=== PATIENT | female | born 2000 | race American Indian/Alaskan Native ===

== ENCOUNTER 2021-02-13 12:27 | Inpatient (IN) | payer MEDICAID ==
[2021-02-13] MEDS ORDERED: LIDOCAINE (2%) 20 MG/1 ML VIAL 20 ML MDV INFILTRATI ONE (12:40)
[2021-02-13] MEDS ORDERED: ONDANSETRON 4 MG/2 ML INJ IV PRN (12:40)
[2021-02-13] MEDS ORDERED: PROMETHAZINE 25 MG TAB PO PRN (12:40)
[2021-02-13] MEDS ORDERED: ePHEDrine SULFATE 50 MG/1 ML INJ IV PRN (12:40)
[2021-02-13] MEDS ORDERED: MINERAL OIL 30 ML ORAL LIQD PO PRN (12:40)
[2021-02-13] MEDS ORDERED: TERBUTALINE 1 MG/1 ML INJ SUB-Q PRN (12:40)
[2021-02-13] MEDS ORDERED: AMPICILLIN/NS 2 GM/100 ML 2 GM/100 ML BAG IV ONE ×2 (12:40→15:00)
[2021-02-13] MEDS ORDERED: NALOXONE 0.4 MG/1 ML INJ IV PRN (12:40)
[2021-02-13] MEDS ORDERED: ACETAMINOPHEN 325 MG TAB PO PRN (12:40)
--- NOTE | 2021-02-13 12:40 | History and Physical Report ---
History of Present Illness Date of examination: 02/13/21 (IOL @ 40.6 wks, Non reactive NST in office) Date of admission: 02/13/21 Chief complaint: NR NST in the office. History of present illness: Pt has non reactive NST in office @ 40.6 wks. Had postdates ultrasound: SABINO WNL, EFW 7-5, vertex. EDC Confirmation: 02/07/2021 Gestational Age: 40.6 wks on admission Past History : 1 Para: 0 Risk Factors: Smoked Tobacco Use: Never smoker Smokeless Tobacco Use: Never Tobacco Use Comments: srinivasa+ use - last use 1 month Passive smoke exposure: no Drug use: no HIV high-risk behavior: no Caffeine use: 0 drinks per day Alcohol use: yes Comments: occ Exercise: no Seatbelt use: preg-correctional counselor % Dietary Counseling: pn yes Past Medical History: Negative Past Medical History Past Surgical History: Broken R ankle - 01/2019 Family History Summary: Other Family Member - Has Family History of Hypertension - Entered On: 08/06/2020 Other Family Member - Has Family History of Diabetes - Entered On: 08/06/2020 Social History: Patient is single Smoking History: Patient has never smoked. Past Medical History Surgery (Non-obstetrics gynecology md): Broken R ankle - 01/2019 Abnormal PAP: negative PREETHI Exposure: negative Infertility: negative Uterine Anomaly: negative Uterine Surgery (not C/S): negative Other Gynecologic Problems: negative Social Hx: Patient is single Smoking History: Patient has never smoked. Infection History Hx of STD: none HIV Risk Eval: no Hepatitis B Risk Eval: low risk Personal hx. of genital herpes: no Rash, Viral, or Febrile illness since last LMP? no Varicella/Chicken Pox Status: Unknown TB Risk: no Genetic History Congenital Heart Defect: Mom: no Dad: no Hyacinth Disease: Mom: no Dad: no Thalassemia Mom: no Dad: no Neural Tube Defect Mom: no Dad: no Down's Syndrome Mom: no Dad: no All-Sachs Mom: no Dad: no Sickle Cell Disease/Trait Mom: no Dad: no Hemophilia Mom: no Dad: no Muscular Dystrophy Mom: no Dad: no Cystic Fibrosis Mom: no Dad: no Marion Chorea Mom: no Dad: no Mental Retardation Mom: no Dad: no Fragile X Mom: no Dad: no Other Genetic/Chromosomal Disorder Mom: no Dad: no Child w/other defect Mom: no Dad: no Enviromental Exposures Enviromental Exposures Reviewed Xray Exposure: no Medication, drug, or alcohol use since LMP: no Chemical/Other Exposure: no Exposure to Cat Liter: no Hx of Parvovirus (Fifth Disease): no Occupational Exposure to Children: none Comments: [employer] Active Medications (reviewed today): None Current Allergies (reviewed today): No known allergies Past History Past Medical History: no pertinent history Past Surgical History: other (Broken ankle that was repaired. ) Family/Genetic History: diabetes, hypertension Social history: no significant social history - Obstetrical History Expected Date of Delivery: 02/07/21 Actual Gestation: 41 Week(s) 0 Day(s) : 1 Para: 0 Hx # Term Pregnancies: 0 Number of Pregnancies: 0 Spontaneous Abortions: 0 Induced : 0 Number of Living Children: 0 Medications and Allergies Allergies Allergy/AdvReac Type Severity Reaction Status Date / Time No Known Allergies Allergy Verified 02/13/21 13:59 Review of Systems All systems: negative - Physical Exam Breasts: Positive: deferred Cardiovascular: Regular rate Lungs: Positive: Normal air movement Abdomen: Positive: normal appearance, soft Genitourinary (Female): Positive: normal external genitalia, normal perenium Vulva: both: normal Vagina: Positive: normal moisture Extremities: Positive: normal Deep Tendon Reflex Grade: Normal +2 - Obstetrical FHR: category 1 Uterine Contraction Monitor Mode: External Cervical Dilatation: 0.5 Cervical Effacement Percentage: 50 station: -3 Uterine Contraction Pattern: Irregular Uterine Tone Measurement Phase: Resting Uterine Contraction Intensity: Mild Results Result Diagrams: 02/13/21 14:45 All other labs normal. GBS POSITIVE HBsAg Screen Negative Negative *1 RPR Non Reactive Non Reactive *2 Rubella Antibodies, IgG 1.44 index Immune >0.99 *3 Non-immune <0.90 Equivocal 0.90 - 0.99 Immune >0.99 ABO Grouping O *4 Rh Factor Positive *5 Antibody Screen Negative Negative *6 Tests: (3) HIV Ag/Ab with Reflex (341350) HIV Screen 4th Generation wRfx Non Reactive Non Reactive *55 Tests: (4) HCV Ab w/Rflx to Verification ([id number]) ! HCV Ab <0.1 s/co ratio 0.0-0.9 *56 Tests: (5) Comment: ([id number]) ! Comment: [facility] *57 Non reactive HCV antibody screen is consistent with no HCV infection, unless recent infection is suspected or other evidence exists to indicate HCV infection. Assessment and Plan A: 20 y.o. @ 40.6 wks for IOL d/t non reactive NST in office. Cervical exam: Ft/50/-3. - Patient Problems (1) Non-reassuring heart rate or rhythm affecting management of fetus Onset Date: ~02/13/21 Current Visit: Yes Status: Acute Plan to address problem: Continuous EFM. (2) GBS (group B streptococcus) infection Current Visit: Yes Status: Acute Plan to address problem: Antibiotics ordered. (3) Postmaturity , 40-42 weeks gestation Onset Date: ~02/13/21 Current Visit: Yes Status: Acute Plan to address problem: Admit to labor and delivery for IOL. Initiate IV. Start IOL with low dose Pitocin per protocol. In evening if unchanged cervix wi ll insert Cervidil. Anticipate .
[2021-02-13] MEDS ORDERED: OXYTOCIN DRIP 30 UNITS/500 ML BAG IV SCH (13:00)
[2021-02-13] MEDS ORDERED: AMPICILLIN/NS 1 GM/50 ML 1 GM/50 ML BAG IV SCH (13:00)
[2021-02-13 14:56] LABS: Hematocrit 32.3 % (30.3-42.9); Hemoglobin 10.9 gm/dl (10.1-14.3); Mean Corpuscular HGB Conc 34 % (30-34); Mean Corpuscular Volume 91 fl (79-97); Platelet Count 303 K/mm3 (140-440); Red Blood Count 3.55 M/mm3 (3.65-5.03); Red Cell Distribution Width 14.7 % (13.2-15.2)
[2021-02-13] MEDS: LACTATED RINGERS 1,000 ML IV SCH (15:04)
[2021-02-13] MEDS ORDERED: DINOPROSTONE 10 MG VAG SUPP VG ONE (18:00)
--- NOTE | 2021-02-13 18:33 | Event Note ---
Date: 02/13/21 (Cervidil) Cervidil placed at 1820. Cervical exam FT/50/-3, unchanged from office exam today.
[2021-02-14] MEDS: LACTATED RINGERS 1,000 ML IV SCH (00:48)
[2021-02-14] MEDS: AMPICILLIN/NS 1 GM/50 ML 1 GM/50 ML BAG IV SCH ×5 (00:49→15:40)
[2021-02-14] MEDS: OXYTOCIN DRIP 30 UNITS/500 ML BAG IV SCH (10:02)
--- NOTE | 2021-02-14 11:32 | Progress Note ---
Assessment and Plan 20y/o @ 41+0 weeks, IOL for non-reassuring FHT. pt sleeping, denies feeling ctx, cramping, leaking or bleeding. will continue pitocin today and reevaluate this evening. Discussed serial IOL and probability that IOL could go several days. all questions addressed. - Patient Problems (1) GBS (group B streptococcus) infection Current Visit: Yes Status: Acute Plan to address problem: ampicillin q4hr when in labor (2) Non-reassuring heart rate or rhythm affecting management of fetus Onset Date: ~02/13/21 Current Visit: Yes Status: Acute Plan to address problem: IOL in progress fht currently cat 1 (3) 41 weeks gestation of Current Visit: Yes Status: Acute Subjective - Subjective Date of service: 02/14/21 Principal diagnosis: IUP @ 41+0; IOL for nonreassuring FHT Patient reports: movement normal, no new complaints, no loss of fluid, no vaginal bleeding, no contractions Objective - Vital Signs Vital Signs: Vital Signs - 12hr 02/13/21 02/13/21 02/13/21 23:31 23:36 23:41 Temperature Pulse Rate 79 86 85 Respiratory Rate Blood Pressure O2 Sat by Pulse 97 96 96 Oximetry 02/13/21 02/13/21 02/13/21 23:46 23:51 23:56 Temperature Pulse Rate 89 89 87 Respiratory Rate Blood Pressure O2 Sat by Pulse 96 96 97 Oximetry 02/13/21 02/14/21 02/14/21 23:58 00:01 00:02 Temperature 98.9 F Pulse Rate 97 H 85 90 Respiratory 18 Rate Blood Pressure 99/55 O2 Sat by Pulse 94 96 Oximetry 02/14/21 02/14/21 02/14/21 00:06 00:11 00:16 Temperature Pulse Rate 86 86 84 Respiratory Rate Blood Pressure O2 Sat by Pulse 98 97 96 Oximetry 02/14/21 02/14/21 02/14/21 00:21 00:26 00:31 Temperature Pulse Rate 82 84 90 Respiratory Rate Blood Pressure O2 Sat by Pulse 98 97 98 Oximetry 02/14/21 02/14/21 02/14/21 00:36 00:41 00:42 Temperature Pulse Rate 89 94 H 92 H Respiratory Rate Blood Pressure O2 Sat by Pulse 99 94 94 Oximetry 02/14/21 02/14/21 02/14/21 00:46 00:51 00:56 Temperature Pulse Rate 93 H 94 H 94 H Respiratory Rate Blood Pressure O2 Sat by Pulse 93 98 98 Oximetry 02/14/21 02/14/21 02/14/21 01:01 01:06 01:11 Temperature Pulse Rate 88 86 89 Respiratory Rate Blood Pressure O2 Sat by Pulse 98 97 98 Oximetry 02/14/21 02/14/21 02/14/21 01:16 01:21 01:26 Temperature Pulse Rate 93 H 95 H 80 Respiratory Rate Blood Pressure O2 Sat by Pulse 97 98 98 Oximetry 02/14/21 02/14/21 02/14/21 01:31 01:36 01:41 Temperature Pulse Rate 82 83 81 Respiratory Rate Blood Pressure O2 Sat by Pulse 98 98 98 Oximetry 02/14/21 02/14/21 02/14/21 01:51 01:56 02:01 Temperature Pulse Rate 86 83 89 Respiratory Rate Blood Pressure O2 Sat by Pulse 97 97 96 Oximetry 02/14/21 02/14/21 02/14/21 02:06 02:11 02:16 Temperature Pulse Rate 85 84 97 H Respiratory Rate Blood Pressure O2 Sat by Pulse 98 97 97 Oximetry 02/14/21 02/14/21 02/14/21 02:21 02:26 02:31 Temperature Pulse Rate 93 H 86 85 Respiratory Rate Blood Pressure O2 Sat by Pulse 99 97 98 Oximetry 02/14/21 02/14/21 02/14/21 02:34 02:36 02:41 Temperature Pulse Rate 101 H 101 H 91 H Respiratory Rate Blood Pressure O2 Sat by Pulse 94 99 99 Oximetry 02/14/21 02/14/21 02/14/21 02:45 02:46 02:51 Temperature Pulse Rate 100 H 89 95 H Respiratory Rate Blood Pressure O2 Sat by Pulse 94 98 100 Oximetry 02/14/21 02/14/21 02/14/21 02:56 03:01 03:06 Temperature Pulse Rate 87 93 H 98 H Respiratory Rate Blood Pressure O2 Sat by Pulse 99 98 98 Oximetry 02/14/21 02/14/21 02/14/21 03:11 03:16 03:21 Temperature Pulse Rate 87 87 92 H Respiratory Rate Blood Pressure O2 Sat by Pulse 97 99 98 Oximetry 02/14/21 02/14/21 02/14/21 03:26 03:31 03:35 Temperature Pulse Rate 85 85 82 Respiratory Rate Blood Pressure O2 Sat by Pulse 97 97 94 Oximetry 02/14/21 02/14/21 02/14/21 03:36 03:41 03:46 Temperature Pulse Rate 87 105 H 80 Respiratory Rate Blood Pressure O2 Sat by Pulse 98 98 97 Oximetry 02/14/21 02/14/21 02/14/21 03:51 03:56 04:01 Temperature Pulse Rate 86 82 78 Respiratory Rate Blood Pressure O2 Sat by Pulse 98 97 97 Oximetry 02/14/21 02/14/21 02/14/21 04:02 04:06 04:11 Temperature 97.9 F Pulse Rate 77 79 77 Respiratory 16 Rate Blood Pressure 109/64 O2 Sat by Pulse 97 97 Oximetry 02/14/21 02/14/21 02/14/21 04:16 04:21 04:26 Temperature Pulse Rate 85 79 75 Respiratory Rate Blood Pressure O2 Sat by Pulse 97 97 97 Oximetry 02/14/21 02/14/21 02/14/21 04:31 04:36 04:41 Temperature Pulse Rate 72 77 79 Respiratory Rate Blood Pressure O2 Sat by Pulse 98 98 98 Oximetry 02/14/21 02/14/21 02/14/21 04:43 04:46 04:48 Temperature Pulse Rate 76 86 83 Respiratory Rate Blood Pressure O2 Sat by Pulse 92 93 92 Oximetry 02/14/21 02/14/21 02/14/21 04:51 04:54 04:56 Temperature Pulse Rate 81 80 95 H Respiratory Rate Blood Pressure O2 Sat by Pulse 97 93 95 Oximetry 02/14/21 02/14/21 02/14/21 05:01 05:06 05:11 Temperature Pulse Rate 82 92 H 84 Respiratory Rate Blood Pressure O2 Sat by Pulse 99 96 97 Oximetry 02/14/21 02/14/21 02/14/21 05:16 05:21 05:26 Temperature Pulse Rate 88 85 87 Respiratory Rate Blood Pressure O2 Sat by Pulse 98 99 98 Oximetry 02/14/21 02/14/21 02/14/21 05:31 05:36 05:41 Temperature Pulse Rate 81 85 84 Respiratory Rate Blood Pressure O2 Sat by Pulse 98 99 99 Oximetry 02/14/21 02/14/21 02/14/21 05:46 05:51 05:56 Temperature Pulse Rate 87 82 88 Respiratory Rate Blood Pressure O2 Sat by Pulse 99 98 98 Oximetry 02/14/21 02/14/21 02/14/21 06:01 06:06 06:11 Temperature Pulse Rate 86 89 86 Respiratory Rate Blood Pressure O2 Sat by Pulse 98 96 96 Oximetry 02/14/21 02/14/21 02/14/21 06:13 06:16 07:33 Temperature Pulse Rate 91 H 79 97 H Respiratory Rate Blood Pressure 114/70 O2 Sat by Pulse 94 94 Oximetry 02/14/21 02/14/21 02/14/21 07:35 09:02 09:07 Temperature 98.9 F Pulse Rate 96 H 71 Respiratory 19 Rate Blood Pressure 128/78 O2 Sat by Pulse 93 Oximetry 02/14/21 02/14/21 02/14/21 09:08 09:09 09:12 Temperature Pulse Rate 64 107 H 109 H Respiratory Rate Blood Pressure 108/58 O2 Sat by Pulse 92 98 Oximetry 02/14/21 02/14/21 02/14/21 09:17 09:22 09:27 Temperature Pulse Rate 110 H 109 H 111 H Respiratory Rate Blood Pressure O2 Sat by Pulse 99 99 99 Oximetry 02/14/21 02/14/21 02/14/21 09:32 09:37 09:40 Temperature Pulse Rate 117 H 97 H 104 H Respiratory Rate Blood Pressure 130/79 O2 Sat by Pulse 99 100 Oximetry 02/14/21 02/14/21 02/14/21 09:42 09:47 09:52 Temperature Pulse Rate 99 H 107 H 109 H Respiratory Rate Blood Pressure O2 Sat by Pulse 97 100 99 Oximetry 02/14/21 02/14/21 02/14/21 09:57 10:02 10:10 Temperature Pulse Rate 108 H 110 H 113 H Respiratory Rate Blood Pressure O2 Sat by Pulse 99 99 98 Oximetry 02/14/21 02/14/21 02/14/21 10:15 10:20 10:25 Temperature Pulse Rate 103 H 102 H 101 H Respiratory Rate Blood Pressure O2 Sat by Pulse 97 98 97 Oximetry 02/14/21 02/14/21 02/14/21 10:30 10:35 10:39 Temperature Pulse Rate 98 H 100 H 94 H Respiratory Rate Blood Pressure 108/63 O2 Sat by Pulse 98 97 94 Oximetry 02/14/21 02/14/21 02/14/21 10:40 10:45 10:50 Temperature Pulse Rate 93 H 101 H 95 H Respiratory Rate Blood Pressure O2 Sat by Pulse 98 96 97 Oximetry 02/14/21 02/14/21 02/14/21 10:55 11:00 11:05 Temperature Pulse Rate 94 H 94 H 94 H Respiratory Rate Blood Pressure O2 Sat by Pulse 97 98 97 Oximetry 02/14/21 02/14/21 02/14/21 11:09 11:10 11:14 Temperature Pulse Rate 96 H 95 H 113 H Respiratory Rate Blood Pressure 104/62 O2 Sat by Pulse 97 87 Oximetry 02/14/21 02/14/21 02/14/21 11:15 11:20 11:25 Temperature Pulse Rate 110 H 103 H 95 H Respiratory Rate Blood Pressure O2 Sat by Pulse 96 98 100 Oximetry - Exam Cardiovascular: Regular rate Lungs: Normal air movement Abdomen: Present: normal appearance, soft Vulva: both: normal Uterus: Present: normal, fundal height above umbilicus FHR: auscultation normal Uterine Contraction Monitor Mode: External Uterine Contraction Frequency (min): 3-4 Uterine Contraction Duration: 60 Uterine Contraction Pattern: Regular Uterine Tone Measurement Phase: Contraction Uterine Contraction Intensity: Mild Extremities: normal Deep Tendon Reflex Grade: Normal +2 - Labs Labs: Abnormal Labs 02/13/21 14:45 RBC 3.55 L Laboratory Results - last 24 hr 02/13/21 02/13/21 02/13/21 14:45 14:45 14:45 WBC 6.4 RBC 3.55 L Hgb 10.9 Hct 32.3 MCV 91 MCH 31 MCHC 34 RDW 14.7 Plt Count 303 Syphilis IgG Antibody Nonreactive Blood Type O POSITIVE Antibody Screen Negative
[2021-02-14] MEDS ORDERED: DINOPROSTONE 10 MG VAG SUPP VG ONE (19:06)
[2021-02-15] MEDS: AMPICILLIN/NS 1 GM/50 ML 1 GM/50 ML BAG IV SCH ×2 (05:19→12:40)
[2021-02-15] MEDS: fentaNYL 100 MCG/2 ML INJ IV PRN ×2 (05:52→08:49)
--- NOTE | 2021-02-15 09:11 | Progress Note ---
Assessment and Plan 20y/o @ 41+0 weeks, IOL for non-reassuring FHT. pt sleeping, denies feeling ctx, cramping, leaking or bleeding. Cervidil to be removed @ 0917 and allow AM care and breakfast. Plan for cytotec today and then reevaluate this evening. Discussed serial IOL and probability that IOL could go several days. all questions addressed. - Patient Problems (1) GBS (group B streptococcus) infection Current Visit: Yes Status: Acute Plan to address problem: ampicillin q4hr when in labor (2) Non-reassuring heart rate or rhythm affecting management of fetus Onset Date: ~02/13/21 Current Visit: Yes Status: Acute Plan to address problem: IOL in progress fht currently cat 1 (3) 41 weeks gestation of Current Visit: Yes Status: Acute Subjective - Subjective Date of service: 02/15/21 Principal diagnosis: IUP @ 41+1; IOL for nonreassuring FHT Patient reports: movement normal, no new complaints, no loss of fluid, no vaginal bleeding, no contractions Objective - Vital Signs Vital Signs: Vital Signs - 12hr 02/14/21 02/14/21 02/14/21 21:07 21:12 21:14 Pulse Rate 92 H 84 Respiratory Rate Blood Pressure O2 Sat by Pulse 97 98 93 Oximetry 02/14/21 02/14/21 02/14/21 21:17 21:22 21:25 Pulse Rate 89 90 88 Respiratory Rate Blood Pressure 116/66 O2 Sat by Pulse 98 97 Oximetry 02/14/21 02/14/21 02/14/21 21:27 21:32 21:37 Pulse Rate 95 H 89 85 Respiratory Rate Blood Pressure O2 Sat by Pulse 99 96 98 Oximetry 02/14/21 02/14/21 02/14/21 21:42 21:47 21:52 Pulse Rate 88 89 85 Respiratory Rate Blood Pressure O2 Sat by Pulse 97 97 97 Oximetry 02/14/21 02/14/21 02/14/21 21:57 22:02 22:07 Pulse Rate 87 100 H 90 Respiratory Rate Blood Pressure O2 Sat by Pulse 99 97 98 Oximetry 02/14/21 02/14/21 02/14/21 22:12 22:17 22:22 Pulse Rate 80 81 85 Respiratory Rate Blood Pressure O2 Sat by Pulse 97 98 97 Oximetry 0502/14/21 02/14/21 22:25 22:27 22:32 Pulse Rate 82 87 92 H Respiratory Rate Blood Pressure 109/72 O2 Sat by Pulse 97 97 Oximetry 02/14/21 02/14/21 02/14/21 22:37 22:42 22:47 Pulse Rate 88 91 H 86 Respiratory Rate Blood Pressure O2 Sat by Pulse 97 97 97 Oximetry 02/14/21 02/14/21 02/14/21 22:49 22:58 23:03 Pulse Rate 85 96 H 77 Respiratory Rate Blood Pressure O2 Sat by Pulse 94 97 98 Oximetry 02/14/21 02/14/21 02/14/21 23:08 23:13 23:18 Pulse Rate 85 82 86 Respiratory Rate Blood Pressure O2 Sat by Pulse 98 98 99 Oximetry 02/14/21 02/14/21 02/14/21 23:23 23:28 23:33 Pulse Rate 86 83 98 H Respiratory Rate Blood Pressure O2 Sat by Pulse 98 98 98 Oximetry 02/14/21 02/14/21 02/14/21 23:38 23:43 23:48 Pulse Rate 82 86 82 Respiratory Rate Blood Pressure O2 Sat by Pulse 97 97 97 Oximetry 02/14/21 02/14/21 02/15/21 23:53 23:58 00:03 Pulse Rate 83 85 84 Respiratory Rate Blood Pressure O2 Sat by Pulse 97 96 96 Oximetry 02/15/21 02/15/21 02/15/21 00:08 00:13 00:18 Pulse Rate 87 93 H 77 Respiratory Rate Blood Pressure O2 Sat by Pulse 96 96 96 Oximetry 02/15/21 02/15/21 02/15/21 00:23 00:27 00:28 Pulse Rate 80 86 82 Respiratory Rate Blood Pressure O2 Sat by Pulse 96 94 92 Oximetry 02/15/21 02/15/21 02/15/21 00:33 00:34 00:38 Pulse Rate 84 86 89 Respiratory Rate Blood Pressure O2 Sat by Pulse 95 94 95 Oximetry 02/15/21 02/15/21 02/15/21 00:43 00:45 00:48 Pulse Rate 98 H 87 90 Respiratory Rate Blood Pressure O2 Sat by Pulse 98 94 96 Oximetry 02/15/21 02/15/21 02/15/21 00:53 00:58 01:03 Pulse Rate 88 90 95 H Respiratory Rate Blood Pressure O2 Sat by Pulse 97 97 96 Oximetry 02/15/21 02/15/21 02/15/21 01:08 01:13 01:18 Pulse Rate 87 88 90 Respiratory Rate Blood Pressure O2 Sat by Pulse 97 97 97 Oximetry 02/15/21 02/15/21 02/15/21 01:23 01:28 01:33 Pulse Rate 92 H 93 H 90 Respiratory Rate Blood Pressure O2 Sat by Pulse 96 96 96 Oximetry 02/15/21 02/15/21 02/15/21 01:38 01:44 01:49 Pulse Rate 95 H 108 H 92 H Respiratory Rate Blood Pressure O2 Sat by Pulse 96 97 97 Oximetry 02/15/21 02/15/21 02/15/21 01:54 01:59 02:04 Pulse Rate 87 96 H 90 Respiratory Rate Blood Pressure O2 Sat by Pulse 97 98 96 Oximetry 02/15/21 02/15/21 02/15/21 02:09 02:14 02:19 Pulse Rate 89 86 82 Respiratory Rate Blood Pressure O2 Sat by Pulse 96 96 94 Oximetry 02/15/21 02/15/21 02/15/21 02:24 02:25 02:29 Pulse Rate 91 H 89 88 Respiratory Rate Blood Pressure O2 Sat by Pulse 94 94 97 Oximetry 02/15/21 02/15/21 02/15/21 02:32 02:34 02:39 Pulse Rate 92 H 81 80 Respiratory Rate Blood Pressure O2 Sat by Pulse 94 97 98 Oximetry 02/15/21 02/15/21 02/15/21 02:44 02:49 02:54 Pulse Rate 78 83 83 Respiratory Rate Blood Pressure O2 Sat by Pulse 98 96 97 Oximetry 02/15/21 02/15/21 02/15/21 02:59 03:04 03:09 Pulse Rate 77 80 77 Respiratory Rate Blood Pressure O2 Sat by Pulse 97 96 96 Oximetry 02/15/21 02/15/21 02/15/21 03:14 03:18 03:19 Pulse Rate 74 91 H 80 Respiratory Rate Blood Pressure O2 Sat by Pulse 96 93 97 Oximetry 02/15/21 02/15/21 02/15/21 03:24 03:29 03:34 Pulse Rate 81 85 87 Respiratory Rate Blood Pressure O2 Sat by Pulse 97 100 97 Oximetry 02/15/21 02/15/21 02/15/21 03:42 03:47 03:52 Pulse Rate 89 89 92 H Respiratory Rate Blood Pressure O2 Sat by Pulse 98 99 99 Oximetry 02/15/21 02/15/21 02/15/21 03:57 03:59 04:02 Pulse Rate 86 85 80 Respiratory Rate Blood Pressure 112/69 O2 Sat by Pulse 99 100 Oximetry 02/15/21 02/15/21 02/15/21 04:07 04:12 04:17 Pulse Rate 92 H 93 H 81 Respiratory Rate Blood Pressure O2 Sat by Pulse 100 100 100 Oximetry 02/15/21 02/15/21 02/15/21 04:22 04:27 04:32 Pulse Rate 80 85 87 Respiratory Rate Blood Pressure O2 Sat by Pulse 99 99 99 Oximetry 02/15/21 02/15/21 02/15/21 04:37 04:47 04:52 Pulse Rate 97 H 95 H 92 H Respiratory Rate Blood Pressure O2 Sat by Pulse 99 99 99 Oximetry 02/15/21 02/15/21 02/15/21 04:57 05:02 05:07 Pulse Rate 85 88 90 Respiratory Rate Blood Pressure O2 Sat by Pulse 99 99 99 Oximetry 02/15/21 02/15/21 02/15/21 05:12 05:17 05:22 Pulse Rate 86 95 H 89 Respiratory Rate Blood Pressure O2 Sat by Pulse 99 98 98 Oximetry 02/15/21 02/15/21 02/15/21 05:27 05:32 05:37 Pulse Rate 90 90 91 H Respiratory Rate Blood Pressure O2 Sat by Pulse 99 98 98 Oximetry 02/15/21 02/15/21 02/15/21 05:42 05:47 05:52 Pulse Rate 93 H 85 86 Respiratory Rate Blood Pressure O2 Sat by Pulse 97 98 98 Oximetry 02/15/21 02/15/21 02/15/21 05:57 06:02 06:07 Pulse Rate 87 84 82 Respiratory Rate Blood Pressure O2 Sat by Pulse 97 97 98 Oximetry 02/15/21 02/15/21 02/15/21 06:12 06:17 06:22 Pulse Rate 79 77 77 Respiratory Rate Blood Pressure O2 Sat by Pulse 97 97 97 Oximetry 02/15/21 02/15/21 02/15/21 06:27 06:32 06:37 Pulse Rate 95 H 70 74 Respiratory Rate Blood Pressure O2 Sat by Pulse 96 97 98 Oximetry 0502/15/21 02/15/21 06:42 06:47 06:52 Pulse Rate 88 72 99 H Respiratory Rate Blood Pressure O2 Sat by Pulse 96 98 98 Oximetry 02/15/21 02/15/21 02/15/21 06:55 06:57 07:01 Pulse Rate 81 82 75 Respiratory Rate Blood Pressure O2 Sat by Pulse 94 95 94 Oximetry 02/15/21 02/15/21 02/15/21 07:02 07:13 07:18 Pulse Rate 78 102 H 78 Respiratory Rate Blood Pressure O2 Sat by Pulse 96 97 98 Oximetry 02/15/21 02/15/21 02/15/21 07:23 07:28 07:33 Pulse Rate 91 H 88 93 H Respiratory Rate Blood Pressure O2 Sat by Pulse 97 99 98 Oximetry 02/15/21 02/15/21 02/15/21 07:38 07:43 07:48 Pulse Rate 88 94 H 99 H Respiratory Rate Blood Pressure O2 Sat by Pulse 98 98 99 Oximetry 02/15/21 02/15/21 02/15/21 07:53 07:58 08:03 Pulse Rate 90 83 85 Respiratory Rate Blood Pressure O2 Sat by Pulse 99 97 98 Oximetry 02/15/21 02/15/21 02/15/21 08:08 08:13 08:18 Pulse Rate 87 87 88 Respiratory Rate Blood Pressure O2 Sat by Pulse 97 98 99 Oximetry 02/15/21 02/15/21 02/15/21 08:23 08:28 08:39 Pulse Rate 101 H 85 97 H Respiratory Rate Blood Pressure O2 Sat by Pulse 99 98 98 Oximetry 02/15/21 02/15/21 02/15/21 08:44 08:47 08:49 Pulse Rate 92 H 88 92 H Respiratory 18 Rate Blood Pressure 132/81 O2 Sat by Pulse 99 98 Oximetry 02/15/21 02/15/21 02/15/21 08:54 08:59 09:04 Pulse Rate 72 83 79 Respiratory Rate Blood Pressure O2 Sat by Pulse 96 96 96 Oximetry - Exam Breasts: normal Cardiovascular: Regular rate Lungs: Clear to auscultation, Normal air movement Abdomen: Present: normal appearance, soft Vulva: both: normal Uterus: Present: normal, fundal height above umbilicus FHR: category 1 Uterine Contraction Monitor Mode: External Uterine Contraction Pattern: Irregular Uterine Tone Measurement Phase: Contraction Uterine Contraction Intensity: Mild Extremities: normal Deep Tendon Reflex Grade: Normal +2 - Labs Labs: Abnormal Labs 02/13/21 14:45 RBC 3.55 L Laboratory Results - last 24 hr 02/14/21 08:59 Coronavirus (PCR) Negative
--- NOTE | 2021-02-15 11:14 | Event Note ---
Date: 02/15/21 pt c/o painful ctx, requesting epidural. SVE /2. pt can have epidural and will change plan from cytotec to pitocin.
[2021-02-15] MEDS ORDERED: NALOXONE 2 MG/2 ML INJ IV PRN (12:27)
[2021-02-15] MEDS ORDERED: ePHEDrine SULFATE 50 MG/1 ML INJ IV PRN (12:27)
--- NOTE | 2021-02-15 12:28 | Anesthesia Consultation ---
Anesthesia Consult and Med Hx Date of service: 02/15/21 - Airway Anesthetic Teeth Evaluation: Good ROM Head & Neck: Adequate Mental/Hyoid Distance: Adequate Mallampati Class: Class II Intubation Access Assessment: Probably Good - Pulmonary Exam CTA: Yes - Cardiac Exam Cardiac Exam: RRR - Pre-Operative Health Status ASA Pre-Surgery Classification: ASA3 Proposed Anesthetic Plan: Epidural - Pulmonary Hx Asthma: No COPD: No Hx Pneumonia: No - Cardiovascular System Hx Hypertension: No - Central Nervous System Hx Seizures: No Hx Psychiatric Problems: No - Endocrine Hx Renal Disease: No Hx End Stage Renal Disease: No Hx Hypothyroidism: No Hx Hyperthyroidism: No - Hematic Hx Sickle Cell Disease: No - Other Systems Hx Alcohol Use: No Hx Substance Use: Yes (Marijuana) Hx Obesity: Yes
[2021-02-15] MEDS: OXYTOCIN DRIP 30 UNITS/500 ML BAG IV SCH ×2 (12:55→21:37)
[2021-02-15] MEDS ORDERED: fentaNYL-BUPIV 2 MCG/ML-0.125% 200 MCG/100 ML BAG EPIDURAL SCH (13:00)
--- NOTE | 2021-02-15 13:06 | Progress Note ---
Labor Epidural - Labor Epidural Start Time: 12:39 Stop Time: 12:54 Performed by:: ANTONIO PERAZA Procedure: Patient is requesting epidural for labor pain. H&P, and labs reviewed. Procedure explained, questions answered, consent obtained. Patient in sitting position with blood pressure cuff and pulse ox on and working. Timeout performed immediately before start of procedure. Sterile chlorahexadine 0.5% prep/drape. 3 mL 1% lidocaine skin wheal at L[3]-L[4]. 18-gauge Tuohy epidural needle advanced to [id number] with saline at [7] cm. Epidural catheter advanced to [12] cm, positive aspiration for blood and removed. 2 ml 1% lidocaine at L 4-5, ELSIE saline at 8 cm. Negative aspiration for blood and csf, negative test dose 3 ml 1.5% lidocaine with epinephrine. Epidural dexmedetomidine [30] mcg administered. Sterile steri-strips and tegaderm applied, followed by tape reinforcement. Patient tolerated procedure well. Antonio SZYMANSKI
--- NOTE | 2021-02-15 13:32 | Progress Note ---
Assessment and Plan Patient comfortable with epidural, SVE 5/100/-1 BBOW. discussed AROM and placement of internals, patient agreed with interventions. IUPC and ISE placed without difficulty. rn to titrate pitocin for adequate labor. will reevaluate PRN - Patient Problems (1) GBS (group B streptococcus) infection Current Visit: Yes Status: Acute Plan to address problem: ampicillin q4hr (2) Non-reassuring heart rate or rhythm affecting management of fetus Onset Date: ~02/13/21 Current Visit: Yes Status: Acute (3) 41 weeks gestation of Current Visit: Yes Status: Acute Subjective - Subjective Date of service: 02/15/21 Principal diagnosis: IUP @ 41+1; IOL for nonreassuring FHT Patient reports: movement normal, no new complaints, no loss of fluid, no vaginal bleeding, no contractions Objective - Vital Signs Vital Signs: Vital Signs - 12hr 02/15/21 02/15/21 02/15/21 01:28 01:33 01:38 Temperature Pulse Rate 93 H 90 95 H Respiratory Rate Blood Pressure O2 Sat by Pulse 96 96 96 Oximetry 02/15/21 02/15/21 02/15/21 01:44 01:49 01:54 Temperature Pulse Rate 108 H 92 H 87 Respiratory Rate Blood Pressure O2 Sat by Pulse 97 97 97 Oximetry 02/15/21 02/15/21 02/15/21 01:59 02:04 02:09 Temperature Pulse Rate 96 H 90 89 Respiratory Rate Blood Pressure O2 Sat by Pulse 98 96 96 Oximetry 02/15/21 02/15/21 02/15/21 02:14 02:19 02:24 Temperature Pulse Rate 86 82 91 H Respiratory Rate Blood Pressure O2 Sat by Pulse 96 94 94 Oximetry 02/15/21 02/15/21 02/15/21 02:25 02:29 02:32 Temperature Pulse Rate 89 88 92 H Respiratory Rate Blood Pressure O2 Sat by Pulse 94 97 94 Oximetry 02/15/21 02/15/21 02/15/21 02:34 02:39 02:44 Temperature Pulse Rate 81 80 78 Respiratory Rate Blood Pressure O2 Sat by Pulse 97 98 98 Oximetry 02/15/21 02/15/21 02/15/21 02:49 02:54 02:59 Temperature Pulse Rate 83 83 77 Respiratory Rate Blood Pressure O2 Sat by Pulse 96 97 97 Oximetry 02/15/21 02/15/21 02/15/21 03:04 03:09 03:14 Temperature Pulse Rate 80 77 74 Respiratory Rate Blood Pressure O2 Sat by Pulse 96 96 96 Oximetry 02/15/21 02/15/21 02/15/21 03:18 03:19 03:24 Temperature Pulse Rate 91 H 80 81 Respiratory Rate Blood Pressure O2 Sat by Pulse 93 97 97 Oximetry 02/15/21 02/15/21 02/15/21 03:29 03:34 03:42 Temperature Pulse Rate 85 87 89 Respiratory Rate Blood Pressure O2 Sat by Pulse 100 97 98 Oximetry 02/15/21 02/15/21 02/15/21 03:47 03:52 03:57 Temperature Pulse Rate 89 92 H 86 Respiratory Rate Blood Pressure O2 Sat by Pulse 99 99 99 Oximetry 02/15/21 02/15/21 02/15/21 03:59 04:02 04:07 Temperature Pulse Rate 85 80 92 H Respiratory Rate Blood Pressure 112/69 O2 Sat by Pulse 100 100 Oximetry 02/15/21 02/15/21 02/15/21 04:12 04:17 04:22 Temperature Pulse Rate 93 H 81 80 Respiratory Rate Blood Pressure O2 Sat by Pulse 100 100 99 Oximetry 02/15/21 02/15/21 02/15/21 04:27 04:32 04:37 Temperature Pulse Rate 85 87 97 H Respiratory Rate Blood Pressure O2 Sat by Pulse 99 99 99 Oximetry 02/15/21 02/15/21 02/15/21 04:47 04:52 04:57 Temperature Pulse Rate 95 H 92 H 85 Respiratory Rate Blood Pressure O2 Sat by Pulse 99 99 99 Oximetry 02/15/21 02/15/21 02/15/21 05:02 05:07 05:12 Temperature Pulse Rate 88 90 86 Respiratory Rate Blood Pressure O2 Sat by Pulse 99 99 99 Oximetry 02/15/21 02/15/21 02/15/21 05:17 05:22 05:27 Temperature Pulse Rate 95 H 89 90 Respiratory Rate Blood Pressure O2 Sat by Pulse 98 98 99 Oximetry 02/15/21 02/15/21 02/15/21 05:32 05:37 05:42 Temperature Pulse Rate 90 91 H 93 H Respiratory Rate Blood Pressure O2 Sat by Pulse 98 98 97 Oximetry 02/15/21 02/15/21 02/15/21 05:47 05:52 05:57 Temperature Pulse Rate 85 86 87 Respiratory Rate Blood Pressure O2 Sat by Pulse 98 98 97 Oximetry 02/15/21 02/15/21 02/15/21 06:02 06:07 06:12 Temperature Pulse Rate 84 82 79 Respiratory Rate Blood Pressure O2 Sat by Pulse 97 98 97 Oximetry 02/15/21 02/15/21 02/15/21 06:17 06:22 06:27 Temperature Pulse Rate 77 77 95 H Respiratory Rate Blood Pressure O2 Sat by Pulse 97 97 96 Oximetry 02/15/21 02/15/21 02/15/21 06:32 06:37 06:42 Temperature Pulse Rate 70 74 88 Respiratory Rate Blood Pressure O2 Sat by Pulse 97 98 96 Oximetry 02/15/21 02/15/21 02/15/21 06:47 06:52 06:55 Temperature Pulse Rate 72 99 H 81 Respiratory Rate Blood Pressure O2 Sat by Pulse 98 98 94 Oximetry 02/15/21 02/15/21 02/15/21 06:57 07:01 07:02 Temperature Pulse Rate 82 75 78 Respiratory Rate Blood Pressure O2 Sat by Pulse 95 94 96 Oximetry 02/15/21 02/15/21 02/15/21 07:13 07:18 07:23 Temperature Pulse Rate 102 H 78 91 H Respiratory Rate Blood Pressure O2 Sat by Pulse 97 98 97 Oximetry 02/15/21 02/15/21 02/15/21 07:28 07:33 07:38 Temperature Pulse Rate 88 93 H 88 Respiratory Rate Blood Pressure O2 Sat by Pulse 99 98 98 Oximetry 02/15/21 02/15/21 02/15/21 07:43 07:48 07:53 Temperature Pulse Rate 94 H 99 H 90 Respiratory Rate Blood Pressure O2 Sat by Pulse 98 99 99 Oximetry 02/15/21 02/15/21 02/15/21 07:58 08:00 08:03 Temperature 98.6 F Pulse Rate 83 85 Respiratory 18 Rate Blood Pressure O2 Sat by Pulse 97 98 Oximetry 02/15/21 02/15/21 02/15/21 08:08 08:13 08:18 Temperature Pulse Rate 87 87 88 Respiratory Rate Blood Pressure O2 Sat by Pulse 97 98 99 Oximetry 02/15/21 02/15/21 02/15/21 08:23 08:28 08:39 Temperature Pulse Rate 101 H 85 97 H Respiratory Rate Blood Pressure O2 Sat by Pulse 99 98 98 Oximetry 02/15/21 02/15/21 02/15/21 08:44 08:47 08:49 Temperature Pulse Rate 92 H 88 92 H Respiratory 18 Rate Blood Pressure 132/81 O2 Sat by Pulse 99 98 Oximetry 02/15/21 02/15/21 02/15/21 08:54 08:59 09:04 Temperature Pulse Rate 72 83 79 Respiratory Rate Blood Pressure O2 Sat by Pulse 96 96 96 Oximetry 02/15/21 02/15/21 02/15/21 09:09 09:14 09:15 Temperature Pulse Rate 77 86 97 H Respiratory Rate Blood Pressure O2 Sat by Pulse 96 96 94 Oximetry 02/15/21 02/15/21 02/15/21 09:19 09:24 09:29 Temperature Pulse Rate 89 83 80 Respiratory Rate Blood Pressure O2 Sat by Pulse 97 97 96 Oximetry 02/15/21 02/15/21 02/15/21 09:34 09:39 09:44 Temperature Pulse Rate 86 87 85 Respiratory Rate Blood Pressure O2 Sat by Pulse 97 98 97 Oximetry 02/15/21 02/15/21 02/15/21 09:49 09:54 10:53 Temperature Pulse Rate 79 91 H 102 H Respiratory Rate Blood Pressure O2 Sat by Pulse 96 98 97 Oximetry 02/15/21 02/15/21 02/15/21 10:58 11:03 11:08 Temperature Pulse Rate 90 97 H 109 H Respiratory Rate Blood Pressure O2 Sat by Pulse 99 99 100 Oximetry 02/15/21 02/15/21 02/15/21 11:13 11:18 11:23 Temperature Pulse Rate 98 H 100 H 93 H Respiratory Rate Blood Pressure O2 Sat by Pulse 100 100 100 Oximetry 02/15/21 02/15/21 02/15/21 11:28 11:33 11:38 Temperature Pulse Rate 108 H 100 H 96 H Respiratory Rate Blood Pressure O2 Sat by Pulse 100 99 99 Oximetry 02/15/21 02/15/21 02/15/21 11:43 11:48 11:53 Temperature Pulse Rate 113 H 95 H 101 H Respiratory Rate Blood Pressure O2 Sat by Pulse 100 99 98 Oximetry 02/15/21 02/15/21 02/15/21 11:58 12:03 12:08 Temperature Pulse Rate 111 H 94 H 101 H Respiratory Rate Blood Pressure O2 Sat by Pulse 100 99 99 Oximetry 02/15/21 02/15/21 02/15/21 12:35 12:36 12:37 Temperature Pulse Rate 103 H 108 H 106 H Respiratory Rate Blood Pressure 132/75 136/83 O2 Sat by Pulse 98 Oximetry 02/15/21 02/15/21 02/15/21 12:39 12:41 12:43 Temperature Pulse Rate 111 H 105 H 95 H Respiratory Rate Blood Pressure 138/78 141/83 142/74 O2 Sat by Pulse 99 Oximetry 02/15/21 02/15/21 02/15/21 12:45 12:46 12:47 Temperature Pulse Rate 98 H 96 H 96 H Respiratory Rate Blood Pressure 140/71 141/69 O2 Sat by Pulse 99 Oximetry 02/15/21 02/15/21 02/15/21 12:49 12:51 12:53 Temperature Pulse Rate 95 H 94 H 105 H Respiratory Rate Blood Pressure 144/71 141/73 146/70 O2 Sat by Pulse 99 Oximetry 02/15/21 02/15/21 02/15/21 12:55 12:56 12:57 Temperature Pulse Rate 100 H 104 H 93 H Respiratory Rate Blood Pressure 150/73 146/71 O2 Sat by Pulse 99 Oximetry 02/15/21 02/15/21 02/15/21 12:59 13:01 13:02 Temperature Pulse Rate 102 H 99 H 92 H Respiratory Rate Blood Pressure 139/73 141/99 O2 Sat by Pulse 99 Oximetry 02/15/21 02/15/21 02/15/21 13:03 13:05 13:06 Temperature Pulse Rate 90 85 95 H Respiratory Rate Blood Pressure 142/73 145/73 O2 Sat by Pulse 99 Oximetry 02/15/21 02/15/21 02/15/21 13:07 13:09 13:11 Temperature Pulse Rate 93 H 90 Respiratory Rate Blood Pressure 136/67 143/67 141/70 O2 Sat by Pulse 99 Oximetry 02/15/21 02/15/21 02/15/21 13:13 13:15 13:16 Temperature Pulse Rate 88 95 H 89 Respiratory Rate Blood Pressure 137/74 135/69 O2 Sat by Pulse 100 Oximetry 02/15/21 02/15/21 02/15/21 13:17 13:19 13:21 Temperature Pulse Rate 83 89 89 Respiratory Rate Blood Pressure 146/80 153/70 154/75 O2 Sat by Pulse 99 Oximetry 02/15/21 13:23 Temperature Pulse Rate 86 Respiratory Rate Blood Pressure 151/72 O2 Sat by Pulse Oximetry - Exam Cardiovascular: Regular rate Lungs: Clear to auscultation, Normal air movement Abdomen: Present: normal appearance, soft, normal bowel sounds Vulva: both: normal Uterus: Present: normal, fundal height above umbilicus FHR: category 1 Uterine Contraction Monitor Mode: External Cervical Dilatation: 5 (AROM - clear fluid, moderate amount) Cervical Effacement Percentage: 100 station: -1 Uterine Contraction Pattern: Regular Uterine Tone Measurement Phase: Contraction Uterine Contraction Intensity: Moderate Extremities: normal Deep Tendon Reflex Grade: Normal +2 - Labs Labs: Abnormal Labs 02/13/21 14:45 RBC 3.55 L Laboratory Results - last 24 hr 02/14/21 08:59 Coronavirus (PCR) Negative
[2021-02-15] MEDS: LACTATED RINGERS 1,000 ML IV SCH ×2 (14:25→21:49)
--- NOTE | 2021-02-15 17:25 | Progress Note ---
Assessment and Plan Late decels noted in FHT, SVE unchanged from last exam by RN. Jin noted. baby feels to be OP. Placed in right lateral position with left leg placed in stirrup. Dr. Adams updated on status. - Patient Problems (1) GBS (group B streptococcus) infection Current Visit: Yes Status: Acute Plan to address problem: ampicillin q4hr (2) Non-reassuring heart rate or rhythm affecting management of fetus Onset Date: ~02/13/21 Current Visit: Yes Status: Acute Plan to address problem: IOL in progress (3) 41 weeks gestation of Current Visit: Yes Status: Acute Subjective - Subjective Date of service: 02/15/21 Principal diagnosis: IUP @ 41+1; IOL for nonreassuring FHT Patient reports: no new complaints, no loss of fluid, no vaginal bleeding, no contractions Objective - Vital Signs Vital Signs: Vital Signs - 12hr 02/15/21 02/15/21 02/15/21 05:22 05:27 05:32 Temperature Pulse Rate 89 90 90 Respiratory Rate Blood Pressure Blood Pressure [Left] O2 Sat by Pulse 98 99 98 Oximetry 02/15/21 02/15/21 02/15/21 05:37 05:42 05:47 Temperature Pulse Rate 91 H 93 H 85 Respiratory Rate Blood Pressure Blood Pressure [Left] O2 Sat by Pulse 98 97 98 Oximetry 02/15/21 02/15/21 02/15/21 05:52 05:57 06:02 Temperature Pulse Rate 86 87 84 Respiratory Rate Blood Pressure Blood Pressure [Left] O2 Sat by Pulse 98 97 97 Oximetry 02/15/21 02/15/21 02/15/21 06:07 06:12 06:17 Temperature Pulse Rate 82 79 77 Respiratory Rate Blood Pressure Blood Pressure [Left] O2 Sat by Pulse 98 97 97 Oximetry 02/15/21 02/15/21 02/15/21 06:22 06:27 06:32 Temperature Pulse Rate 77 95 H 70 Respiratory Rate Blood Pressure Blood Pressure [Left] O2 Sat by Pulse 97 96 97 Oximetry 02/15/21 02/15/21 02/15/21 06:37 06:42 06:47 Temperature Pulse Rate 74 88 72 Respiratory Rate Blood Pressure Blood Pressure [Left] O2 Sat by Pulse 98 96 98 Oximetry 02/15/21 02/15/21 02/15/21 06:52 06:55 06:57 Temperature Pulse Rate 99 H 81 82 Respiratory Rate Blood Pressure Blood Pressure [Left] O2 Sat by Pulse 98 94 95 Oximetry 02/15/21 02/15/21 02/15/21 07:01 07:02 07:13 Temperature Pulse Rate 75 78 102 H Respiratory Rate Blood Pressure Blood Pressure [Left] O2 Sat by Pulse 94 96 97 Oximetry 02/15/21 02/15/21 02/15/21 07:18 07:23 07:28 Temperature Pulse Rate 78 91 H 88 Respiratory Rate Blood Pressure Blood Pressure [Left] O2 Sat by Pulse 98 97 99 Oximetry 02/15/21 02/15/21 02/15/21 07:33 07:38 07:43 Temperature Pulse Rate 93 H 88 94 H Respiratory Rate Blood Pressure Blood Pressure [Left] O2 Sat by Pulse 98 98 98 Oximetry 02/15/21 02/15/21 02/15/21 07:48 07:53 07:58 Temperature Pulse Rate 99 H 90 83 Respiratory Rate Blood Pressure Blood Pressure [Left] O2 Sat by Pulse 99 99 97 Oximetry 02/15/21 02/15/21 02/15/21 08:00 08:03 08:08 Temperature 98.6 F Pulse Rate 85 87 Respiratory 18 Rate Blood Pressure Blood Pressure [Left] O2 Sat by Pulse 98 97 Oximetry 02/15/21 02/15/21 02/15/21 08:13 08:18 08:23 Temperature Pulse Rate 87 88 101 H Respiratory Rate Blood Pressure Blood Pressure [Left] O2 Sat by Pulse 98 99 99 Oximetry 02/15/21 02/15/21 02/15/21 08:28 08:39 08:44 Temperature Pulse Rate 85 97 H 92 H Respiratory Rate Blood Pressure Blood Pressure [Left] O2 Sat by Pulse 98 98 99 Oximetry 02/15/21 02/15/21 02/15/21 08:47 08:49 08:54 Temperature Pulse Rate 88 92 H 72 Respiratory 18 Rate Blood Pressure 132/81 Blood Pressure [Left] O2 Sat by Pulse 98 96 Oximetry 02/15/21 02/15/21 02/15/21 08:59 09:04 09:09 Temperature Pulse Rate 83 79 77 Respiratory Rate Blood Pressure Blood Pressure [Left] O2 Sat by Pulse 96 96 96 Oximetry 02/15/21 02/15/21 02/15/21 09:14 09:15 09:19 Temperature Pulse Rate 86 97 H 89 Respiratory Rate Blood Pressure Blood Pressure [Left] O2 Sat by Pulse 96 94 97 Oximetry 02/15/21 02/15/21 02/15/21 09:24 09:29 09:34 Temperature Pulse Rate 83 80 86 Respiratory Rate Blood Pressure Blood Pressure [Left] O2 Sat by Pulse 97 96 97 Oximetry 02/15/21 02/15/21 02/15/21 09:39 09:44 09:49 Temperature Pulse Rate 87 85 79 Respiratory Rate Blood Pressure Blood Pressure [Left] O2 Sat by Pulse 98 97 96 Oximetry 02/15/21 02/15/21 02/15/21 09:54 10:53 10:58 Temperature Pulse Rate 91 H 102 H 90 Respiratory Rate Blood Pressure Blood Pressure [Left] O2 Sat by Pulse 98 97 99 Oximetry 02/15/21 02/15/21 02/15/21 11:03 11:08 11:13 Temperature Pulse Rate 97 H 109 H 98 H Respiratory Rate Blood Pressure Blood Pressure [Left] O2 Sat by Pulse 99 100 100 Oximetry 02/15/21 02/15/21 02/15/21 11:18 11:23 11:28 Temperature Pulse Rate 100 H 93 H 108 H Respiratory Rate Blood Pressure Blood Pressure [Left] O2 Sat by Pulse 100 100 100 Oximetry 02/15/21 02/15/21 02/15/21 11:33 11:38 11:43 Temperature Pulse Rate 100 H 96 H 113 H Respiratory Rate Blood Pressure Blood Pressure [Left] O2 Sat by Pulse 99 99 100 Oximetry 02/15/21 02/15/21 02/15/21 11:48 11:53 11:58 Temperature Pulse Rate 95 H 101 H 111 H Respiratory Rate Blood Pressure Blood Pressure [Left] O2 Sat by Pulse 99 98 100 Oximetry 02/15/21 02/15/21 02/15/21 12:03 12:08 12:35 Temperature Pulse Rate 94 H 101 H 103 H Respiratory Rate Blood Pressure 132/75 Blood Pressure [Left] O2 Sat by Pulse 99 99 Oximetry 02/15/21 02/15/21 02/15/21 12:36 12:37 12:39 Temperature Pulse Rate 108 H 106 H 111 H Respiratory Rate Blood Pressure 136/83 138/78 Blood Pressure [Left] O2 Sat by Pulse 98 Oximetry 02/15/21 02/15/21 02/15/21 12:41 12:43 12:45 Temperature Pulse Rate 105 H 95 H 98 H Respiratory Rate Blood Pressure 141/83 142/74 140/71 Blood Pressure [Left] O2 Sat by Pulse 99 Oximetry 02/15/21 02/15/21 02/15/21 12:46 12:47 12:49 Temperature Pulse Rate 96 H 96 H 95 H Respiratory Rate Blood Pressure 141/69 144/71 Blood Pressure [Left] O2 Sat by Pulse 99 Oximetry 02/15/21 02/15/21 02/15/21 12:51 12:53 12:55 Temperature Pulse Rate 94 H 105 H 100 H Respiratory Rate Blood Pressure 141/73 146/70 150/73 Blood Pressure [Left] O2 Sat by Pulse 99 Oximetry 02/15/21 02/15/21 02/15/21 12:56 12:57 12:59 Temperature Pulse Rate 104 H 93 H 102 H Respiratory Rate Blood Pressure 146/71 139/73 Blood Pressure [Left] O2 Sat by Pulse 99 Oximetry 02/15/21 02/15/21 02/15/21 13:01 13:02 13:03 Temperature Pulse Rate 99 H 92 H 90 Respiratory Rate Blood Pressure 141/99 142/73 Blood Pressure [Left] O2 Sat by Pulse 99 Oximetry 02/15/21 02/15/21 02/15/21 13:05 13:06 13:07 Temperature Pulse Rate 85 95 H Respiratory Rate Blood Pressure 145/73 136/67 Blood Pressure [Left] O2 Sat by Pulse 99 Oximetry 02/15/21 02/15/21 02/15/21 13:09 13:11 13:13 Temperature Pulse Rate 93 H 90 88 Respiratory Rate Blood Pressure 143/67 141/70 137/74 Blood Pressure [Left] O2 Sat by Pulse 99 Oximetry 02/15/21 02/15/21 02/15/21 13:15 13:16 13:17 Temperature Pulse Rate 95 H 89 83 Respiratory Rate Blood Pressure 135/69 146/80 Blood Pressure [Left] O2 Sat by Pulse 100 Oximetry 02/15/21 02/15/21 02/15/21 13:19 13:21 13:23 Temperature Pulse Rate 89 89 86 Respiratory Rate Blood Pressure 153/70 154/75 151/72 Blood Pressure [Left] O2 Sat by Pulse 99 Oximetry 05/09/21 05/09/21 05/09/21 13:26 13:31 13:36 Temperature Pulse Rate 93 H 88 98 H Respiratory Rate Blood Pressure Blood Pressure [Left] O2 Sat by Pulse 99 99 99 Oximetry 02/15/21 02/15/21 02/15/21 13:41 13:46 13:51 Temperature Pulse Rate 95 H 99 H 87 Respiratory Rate Blood Pressure Blood Pressure [Left] O2 Sat by Pulse 99 99 99 Oximetry 02/15/21 02/15/21 02/15/21 13:53 13:56 14:01 Temperature Pulse Rate 87 97 H 96 H Respiratory Rate Blood Pressure 144/80 Blood Pressure [Left] O2 Sat by Pulse 98 99 Oximetry 02/15/21 02/15/21 02/15/21 14:06 14:11 14:16 Temperature Pulse Rate 94 H 86 93 H Respiratory Rate Blood Pressure Blood Pressure [Left] O2 Sat by Pulse 98 98 99 Oximetry 02/15/21 02/15/21 02/15/21 14:21 14:25 14:26 Temperature 98.4 F Pulse Rate 90 92 H 88 Respiratory 14 Rate Blood Pressure 109/60 Blood Pressure 144/80 [Left] O2 Sat by Pulse 99 99 Oximetry 02/15/21 02/15/21 02/15/21 14:31 14:36 14:41 Temperature Pulse Rate 90 91 H 90 Respiratory Rate Blood Pressure Blood Pressure [Left] O2 Sat by Pulse 99 98 98 Oximetry 02/15/21 02/15/21 02/15/21 14:46 14:51 14:55 Temperature Pulse Rate 96 H 95 H 104 H Respiratory Rate Blood Pressure 153/80 Blood Pressure [Left] O2 Sat by Pulse 98 98 Oximetry 02/15/21 02/15/21 02/15/21 14:56 15:01 15:06 Temperature Pulse Rate 100 H 82 82 Respiratory Rate Blood Pressure Blood Pressure [Left] O2 Sat by Pulse 99 100 100 Oximetry 02/15/21 02/15/21 02/15/21 15:11 15:16 15:21 Temperature Pulse Rate 85 80 85 Respiratory Rate Blood Pressure Blood Pressure [Left] O2 Sat by Pulse 100 100 100 Oximetry 02/15/21 02/15/21 02/15/21 15:24 15:26 15:31 Temperature Pulse Rate 78 88 90 Respiratory Rate Blood Pressure 134/67 Blood Pressure [Left] O2 Sat by Pulse 100 100 Oximetry 02/15/21 02/15/2121 15:36 15:41 15:46 Temperature Pulse Rate 91 H 84 86 Respiratory Rate Blood Pressure Blood Pressure [Left] O2 Sat by Pulse 100 100 100 Oximetry 02/15/21 02/15/21 02/15/21 15:51 15:56 16:01 Temperature Pulse Rate 81 86 90 Respiratory Rate Blood Pressure 143/81 Blood Pressure [Left] O2 Sat by Pulse 100 100 100 Oximetry 02/15/21 02/15/21 02/15/21 16:06 16:11 16:16 Temperature Pulse Rate 85 87 90 Respiratory Rate Blood Pressure Blood Pressure [Left] O2 Sat by Pulse 100 100 100 Oximetry 02/15/21 02/15/21 02/15/21 16:21 16:24 16:26 Temperature Pulse Rate 90 100 H 88 Respiratory Rate Blood Pressure 149/98 Blood Pressure [Left] O2 Sat by Pulse 100 100 Oximetry 02/15/21 02/15/21 02/15/21 16:31 16:36 16:41 Temperature Pulse Rate 86 88 93 H Respiratory Rate Blood Pressure Blood Pressure [Left] O2 Sat by Pulse 100 100 100 Oximetry 02/15/21 02/15/21 02/15/21 16:46 16:51 16:55 Temperature Pulse Rate 89 86 89 Respiratory Rate Blood Pressure 146/84 Blood Pressure [Left] O2 Sat by Pulse 100 100 Oximetry 02/15/21 02/15/21 02/15/21 16:56 17:01 17:06 Temperature Pulse Rate 94 H 96 H 90 Respiratory Rate Blood Pressure Blood Pressure [Left] O2 Sat by Pulse 100 100 100 Oximetry 02/15/21 02/15/21 17:11 17:16 Temperature Pulse Rate 86 85 Respiratory Rate Blood Pressure Blood Pressure [Left] O2 Sat by Pulse 100 100 Oximetry - Exam Cardiovascular: Regular rate Lungs: Normal air movement Abdomen: Present: normal appearance, soft Vulva: both: normal Uterus: Present: normal FHR: category 2 Uterine Contraction Monitor Mode: External Cervical Dilatation: 6 (caput palpated) Cervical Effacement Percentage: 100 station: -1 Uterine Contraction Frequency (min): 1.5-3 Uterine Contraction Duration: 60 Uterine Contraction Pattern: Regular Uterine Tone Measurement Phase: Contraction Uterine Contraction Intensity: Strong/Firm Extremities: normal Deep Tendon Reflex Grade: Normal +2 - Labs Labs: Abnormal Labs 02/13/21 14:45 RBC 3.55 L
[2021-02-15] MEDS ORDERED: BUPIVACAINE/PF (0.25%) 2.5 MG/ML 10 ML VIAL INFILTRATI ONE (18:36)
--- NOTE | 2021-02-15 18:51 | Progress Note ---
Assessment and Plan fht does not tolerate left side or thrown positions. SVE now 9 but w/o decent. moulding and caput present. baby still feels OP. Discussed with patient concern that baby may be too large for pelvis or that presentation of baby could make a vaginal delivery difficult especially that we can not change her position. Pt verbalizes understanding. Dr. Adams called and updated, she will come to hospital and asses. - Patient Problems (1) GBS (group B streptococcus) infection Current Visit: Yes Status: Acute (2) Non-reassuring heart rate or rhythm affecting management of fetus Onset Date: ~02/13/21 Current Visit: Yes Status: Acute (3) 41 weeks gestation of Current Visit: Yes Status: Acute Subjective - Subjective Date of service: 02/15/21 Principal diagnosis: IUP @ 41+1; IOL for nonreassuring FHT Patient reports: no new complaints, no loss of fluid, no vaginal bleeding, no contractions Objective - Vital Signs Vital Signs: Vital Signs - 12hr 02/15/21 02/15/21 02/15/21 06:47 06:52 06:55 Temperature Pulse Rate 72 99 H 81 Respiratory Rate Blood Pressure Blood Pressure [Left] O2 Sat by Pulse 98 98 94 Oximetry 02/15/21 02/15/21 02/15/21 06:57 07:01 07:02 Temperature Pulse Rate 82 75 78 Respiratory Rate Blood Pressure Blood Pressure [Left] O2 Sat by Pulse 95 94 96 Oximetry 02/15/21 02/15/21 02/15/21 07:13 07:18 07:23 Temperature Pulse Rate 102 H 78 91 H Respiratory Rate Blood Pressure Blood Pressure [Left] O2 Sat by Pulse 97 98 97 Oximetry 02/15/21 02/15/21 02/15/21 07:28 07:33 07:38 Temperature Pulse Rate 88 93 H 88 Respiratory Rate Blood Pressure Blood Pressure [Left] O2 Sat by Pulse 99 98 98 Oximetry 02/15/21 02/15/21 02/15/21 07:43 07:48 07:53 Temperature Pulse Rate 94 H 99 H 90 Respiratory Rate Blood Pressure Blood Pressure [Left] O2 Sat by Pulse 98 99 99 Oximetry 02/15/21 02/15/21 02/15/21 07:58 08:00 08:03 Temperature 98.6 F Pulse Rate 83 85 Respiratory 18 Rate Blood Pressure Blood Pressure [Left] O2 Sat by Pulse 97 98 Oximetry 02/15/21 02/15/21 02/15/21 08:08 08:13 08:18 Temperature Pulse Rate 87 87 88 Respiratory Rate Blood Pressure Blood Pressure [Left] O2 Sat by Pulse 97 98 99 Oximetry 02/15/21 02/15/21 02/15/21 08:23 08:28 08:39 Temperature Pulse Rate 101 H 85 97 H Respiratory Rate Blood Pressure Blood Pressure [Left] O2 Sat by Pulse 99 98 98 Oximetry 02/15/21 02/15/21 02/15/21 08:44 08:47 08:49 Temperature Pulse Rate 92 H 88 92 H Respiratory 18 Rate Blood Pressure 132/81 Blood Pressure [Left] O2 Sat by Pulse 99 98 Oximetry 02/15/21 02/15/21 02/15/21 08:54 08:59 09:04 Temperature Pulse Rate 72 83 79 Respiratory Rate Blood Pressure Blood Pressure [Left] O2 Sat by Pulse 96 96 96 Oximetry 02/15/21 02/15/21 02/15/21 09:09 09:14 09:15 Temperature Pulse Rate 77 86 97 H Respiratory Rate Blood Pressure Blood Pressure [Left] O2 Sat by Pulse 96 96 94 Oximetry 02/15/21 02/15/21 02/15/21 09:19 09:24 09:29 Temperature Pulse Rate 89 83 80 Respiratory Rate Blood Pressure Blood Pressure [Left] O2 Sat by Pulse 97 97 96 Oximetry 02/15/21 02/15/21 02/15/21 09:34 09:39 09:44 Temperature Pulse Rate 86 87 85 Respiratory Rate Blood Pressure Blood Pressure [Left] O2 Sat by Pulse 97 98 97 Oximetry 02/15/21 02/15/21 02/15/21 09:49 09:54 10:53 Temperature Pulse Rate 79 91 H 102 H Respiratory Rate Blood Pressure Blood Pressure [Left] O2 Sat by Pulse 96 98 97 Oximetry 02/15/21 02/15/21 02/15/21 10:58 11:03 11:08 Temperature Pulse Rate 90 97 H 109 H Respiratory Rate Blood Pressure Blood Pressure [Left] O2 Sat by Pulse 99 99 100 Oximetry 02/15/21 02/15/21 02/15/21 11:13 11:18 11:23 Temperature Pulse Rate 98 H 100 H 93 H Respiratory Rate Blood Pressure Blood Pressure [Left] O2 Sat by Pulse 100 100 100 Oximetry 02/15/21 02/15/21 02/15/21 11:28 11:33 11:38 Temperature Pulse Rate 108 H 100 H 96 H Respiratory Rate Blood Pressure Blood Pressure [Left] O2 Sat by Pulse 100 99 99 Oximetry 02/15/21 02/15/21 02/15/21 11:43 11:48 11:53 Temperature Pulse Rate 113 H 95 H 101 H Respiratory Rate Blood Pressure Blood Pressure [Left] O2 Sat by Pulse 100 99 98 Oximetry 02/15/21 02/15/21 02/15/21 11:58 12:03 12:08 Temperature Pulse Rate 111 H 94 H 101 H Respiratory Rate Blood Pressure Blood Pressure [Left] O2 Sat by Pulse 100 99 99 Oximetry 02/15/21 02/15/21 02/15/21 12:35 12:36 12:37 Temperature Pulse Rate 103 H 108 H 106 H Respiratory Rate Blood Pressure 132/75 136/83 Blood Pressure [Left] O2 Sat by Pulse 98 Oximetry 02/15/21 02/15/21 02/15/21 12:39 12:41 12:43 Temperature Pulse Rate 111 H 105 H 95 H Respiratory Rate Blood Pressure 138/78 141/83 142/74 Blood Pressure [Left] O2 Sat by Pulse 99 Oximetry 02/15/21 02/15/21 02/15/21 12:45 12:46 12:47 Temperature Pulse Rate 98 H 96 H 96 H Respiratory Rate Blood Pressure 140/71 141/69 Blood Pressure [Left] O2 Sat by Pulse 99 Oximetry 02/15/21 02/15/21 02/15/21 12:49 12:51 12:53 Temperature Pulse Rate 95 H 94 H 105 H Respiratory Rate Blood Pressure 144/71 141/73 146/70 Blood Pressure [Left] O2 Sat by Pulse 99 Oximetry 02/15/21 02/15/21 02/15/21 12:55 12:56 12:57 Temperature Pulse Rate 100 H 104 H 93 H Respiratory Rate Blood Pressure 150/73 146/71 Blood Pressure [Left] O2 Sat by Pulse 99 Oximetry 02/15/21 02/15/21 02/15/21 12:59 13:01 13:02 Temperature Pulse Rate 102 H 99 H 92 H Respiratory Rate Blood Pressure 139/73 141/99 Blood Pressure [Left] O2 Sat by Pulse 99 Oximetry 02/15/21 02/15/21 02/15/21 13:03 13:05 13:06 Temperature Pulse Rate 90 85 95 H Respiratory Rate Blood Pressure 142/73 145/73 Blood Pressure [Left] O2 Sat by Pulse 99 Oximetry 02/15/21 02/15/21 02/15/21 13:07 13:09 13:11 Temperature Pulse Rate 93 H 90 Respiratory Rate Blood Pressure 136/67 143/67 141/70 Blood Pressure [Left] O2 Sat by Pulse 99 Oximetry 02/15/21 02/15/21 02/15/21 13:13 13:15 13:16 Temperature Pulse Rate 88 95 H 89 Respiratory Rate Blood Pressure 137/74 135/69 Blood Pressure [Left] O2 Sat by Pulse 100 Oximetry 02/15/21 02/15/21 02/15/21 13:17 13:19 13:21 Temperature Pulse Rate 83 89 89 Respiratory Rate Blood Pressure 146/80 153/70 154/75 Blood Pressure [Left] O2 Sat by Pulse 99 Oximetry 02/15/21 02/15/21 02/15/21 13:23 13:26 13:31 Temperature Pulse Rate 86 93 H 88 Respiratory Rate Blood Pressure 151/72 Blood Pressure [Left] O2 Sat by Pulse 99 99 Oximetry 02/15/21 02/15/21 02/15/21 13:36 13:41 13:46 Temperature Pulse Rate 98 H 95 H 99 H Respiratory Rate Blood Pressure Blood Pressure [Left] O2 Sat by Pulse 99 99 99 Oximetry 02/15/21 02/15/21 02/15/21 13:51 13:53 13:56 Temperature Pulse Rate 87 87 97 H Respiratory Rate Blood Pressure 144/80 Blood Pressure [Left] O2 Sat by Pulse 99 98 Oximetry 02/15/21 02/15/21 02/15/21 14:01 14:06 14:11 Temperature Pulse Rate 96 H 94 H 86 Respiratory Rate Blood Pressure Blood Pressure [Left] O2 Sat by Pulse 99 98 98 Oximetry 02/15/21 02/15/21 02/15/21 14:16 14:21 14:25 Temperature 98.4 F Pulse Rate 93 H 90 92 H Respiratory 14 Rate Blood Pressure 109/60 Blood Pressure 144/80 [Left] O2 Sat by Pulse 99 99 Oximetry 02/15/21 02/15/21 02/15/21 14:26 14:31 14:36 Temperature Pulse Rate 88 90 91 H Respiratory Rate Blood Pressure Blood Pressure [Left] O2 Sat by Pulse 99 99 98 Oximetry 02/15/21 02/15/21 02/15/21 14:41 14:46 14:51 Temperature Pulse Rate 90 96 H 95 H Respiratory Rate Blood Pressure Blood Pressure [Left] O2 Sat by Pulse 98 98 98 Oximetry 02/15/21 02/15/21 02/15/21 14:55 14:56 15:01 Temperature Pulse Rate 104 H 100 H 82 Respiratory Rate Blood Pressure 153/80 Blood Pressure [Left] O2 Sat by Pulse 99 100 Oximetry 02/15/21 02/15/21 02/15/21 15:06 15:11 15:16 Temperature Pulse Rate 82 85 80 Respiratory Rate Blood Pressure Blood Pressure [Left] O2 Sat by Pulse 100 100 100 Oximetry 02/15/21 02/15/21 02/15/21 15:21 15:24 15:26 Temperature Pulse Rate 85 78 88 Respiratory Rate Blood Pressure 134/67 Blood Pressure [Left] O2 Sat by Pulse 100 100 Oximetry 02/15/21 02/15/21 02/15/21 15:31 15:36 15:41 Temperature Pulse Rate 90 91 H 84 Respiratory Rate Blood Pressure Blood Pressure [Left] O2 Sat by Pulse 100 100 100 Oximetry 02/15/21 02/15/21 02/15/21 15:46 15:51 15:56 Temperature Pulse Rate 86 81 86 Respiratory Rate Blood Pressure 143/81 Blood Pressure [Left] O2 Sat by Pulse 100 100 100 Oximetry 02/15/21 02/15/21 02/15/21 16:01 16:06 16:11 Temperature Pulse Rate 90 85 87 Respiratory Rate Blood Pressure Blood Pressure [Left] O2 Sat by Pulse 100 100 100 Oximetry 02/15/21 02/15/21 02/15/21 16:16 16:21 16:24 Temperature Pulse Rate 90 90 100 H Respiratory Rate Blood Pressure 149/98 Blood Pressure [Left] O2 Sat by Pulse 100 100 Oximetry 02/15/21 02/15/21 02/15/21 16:26 16:31 16:36 Temperature Pulse Rate 88 86 88 Respiratory Rate Blood Pressure Blood Pressure [Left] O2 Sat by Pulse 100 100 100 Oximetry 02/15/21 02/15/21 02/15/21 16:41 16:46 16:51 Temperature Pulse Rate 93 H 89 86 Respiratory Rate Blood Pressure Blood Pressure [Left] O2 Sat by Pulse 100 100 100 Oximetry 02/15/21 02/15/21 02/15/21 16:55 16:56 17:01 Temperature Pulse Rate 89 94 H 96 H Respiratory Rate Blood Pressure 146/84 Blood Pressure [Left] O2 Sat by Pulse 100 100 Oximetry 02/15/21 02/15/21 02/15/21 17:06 17:11 17:16 Temperature Pulse Rate 90 86 85 Respiratory Rate Blood Pressure Blood Pressure [Left] O2 Sat by Pulse 100 100 100 Oximetry 02/15/21 02/15/21 02/15/21 17:21 17:23 17:26 Temperature Pulse Rate 87 83 88 Respiratory Rate Blood Pressure 106/59 Blood Pressure [Left] O2 Sat by Pulse 100 100 Oximetry 02/15/21 02/15/21 02/15/21 17:31 17:36 17:41 Temperature Pulse Rate 85 91 H 95 H Respiratory Rate Blood Pressure Blood Pressure [Left] O2 Sat by Pulse 100 100 100 Oximetry 02/15/21 02/15/21 02/15/21 17:46 17:51 17:53 Temperature Pulse Rate 95 H 94 H 97 H Respiratory Rate Blood Pressure 113/65 Blood Pressure [Left] O2 Sat by Pulse 100 100 Oximetry 02/15/21 02/15/21 02/15/21 17:56 18:01 18:06 Temperature Pulse Rate 97 H 92 H 93 H Respiratory Rate Blood Pressure Blood Pressure [Left] O2 Sat by Pulse 100 100 100 Oximetry 02/15/21 02/15/21 02/15/21 18:11 18:16 18:21 Temperature Pulse Rate 94 H 96 H 88 Respiratory Rate Blood Pressure Blood Pressure [Left] O2 Sat by Pulse 100 99 99 Oximetry 02/15/21 02/15/21 02/15/21 18:25 18:26 18:31 Temperature Pulse Rate 94 H 93 H 93 H Respiratory Rate Blood Pressure 131/81 Blood Pressure [Left] O2 Sat by Pulse 93 100 100 Oximetry 02/15/21 02/15/21 18:36 18:41 Temperature Pulse Rate 90 89 Respiratory Rate Blood Pressure Blood Pressure [Left] O2 Sat by Pulse 100 100 Oximetry - Exam Cardiovascular: Regular rate Lungs: Normal air movement Abdomen: Present: normal appearance, soft Vulva: both: normal (+bloody show) Uterus: Present: fundal height above umbilicus FHR: category 2 Uterine Contraction Monitor Mode: Internal Cervical Dilatation: 9 Cervical Effacement Percentage: 100 station: -1 Uterine Contraction Frequency (min): 1-3 Uterine Tone Measurement Phase: Contraction Uterine Contraction Intensity: Strong/Firm Extremities: normal - Labs Labs: Abnormal Labs 02/13/21 14:45 RBC 3.55 L
[2021-02-15] MEDS ORDERED: FAMOTIDINE 20 MG/2 ML INJ IV ONE (18:59)
[2021-02-15] MEDS ORDERED: METOCLOPRAMIDE 10 MG/2 ML INJ ONE (18:59)
[2021-02-15] MEDS ORDERED: BICITRA ORAL LIQD 30ML ONE (19:00)
[2021-02-15] MEDS ORDERED: ceFAZolin/Water 2 GM/20 ML 0 GM/0 ML SYRINGE IV ONE (19:01)
--- NOTE | 2021-02-15 20:46 | Procedure Note ---
OB Delivery Note - Delivery Date of Delivery: 02/15/21 ( female) King Maker: KURT MANJARREZ Estimated blood loss: 100cc - Vaginal Delivery presentation: vertex Delivery position: OA (ALEXEI) Intrapartum events: decreased FHT variability, mult.variable deceleratio Delivery induction: cervidil Delivery augmentation: rupture of membranes, pitocin Delivery monitor: external FHT, internal uterine Route of delivery: Delivery placenta: spontaneous Delivery cord: 3 umbilical vessels Episiotomy: none Delivery laceration: none Anesthesia: epidural Delivery comments: female infant born over intact perineum, ALEXEI, infant placed skin to skin on mother's abdomen. 3 vessel cord clamped and cut after cessation of pulsation. cord blood collected. placenta del intact and complete. sent to pathology. no lacerations to repair. EBL 300, apgars 8/8. all counts correct. mother and baby left LDRP stable. - A at 1 minute: 8 at 5 minutes: 8 Infant Gender: Female
[2021-02-15] MEDS ORDERED: diphenhydrAMINE 25 MG CAP PO PRN (23:13)
[2021-02-15] MEDS ORDERED: LANOLIN/ZINC/DIMETHICONE (LANSINOH) 7 GM TP PRN ×2 (23:13)
[2021-02-15] MEDS ORDERED: WITCH HAZEL/ GLYCERIN PAD TP PRN (23:13)
[2021-02-15] MEDS ORDERED: MAGNESIUM HYDROXIDE (MOM) ORAL LIQD UDC PO PRN (23:13)
[2021-02-15] MEDS ORDERED: PROMETHAZINE 25 MG TAB PO PRN (23:13)
[2021-02-15] MEDS: DOCUSATE SODIUM 100 MG CAP PO SCH (23:19)
[2021-02-15] MEDS: IBUPROFEN 600 MG TAB PO SCH (23:48)
[2021-02-16] MEDS: IBUPROFEN 600 MG TAB PO SCH ×3 (05:23→17:40)
--- NOTE | 2021-02-16 07:15 | Discharge Summary ---
Providers - Providers Date of Admission: 02/13/21 12:28 Date of discharge: 02/16/21 (pt would like d/c when NB is d/c) Attending physician: KATHLEEN WAITE 02/15/21 23:13 Consult to Director Of Field Sales [CONS] Routine Reason For Exam: assistance with , SNS Primary care physician: KATHLEEN WAITE Hospitalization Reason for admission: induction of labor, IUP at term Delivery: Episiotomy: none Laceration: none Incision: normal Other procedures: none complications: none Discharge diagnosis: IUP at term delivered baby: female Hospital course: Uncomplicated vaginal delivery Pt awake anxious for d/c. Aware baby must stay 24hr. VSS FF below umb Lochia small perineum intact. H&H pending. Doing well s/p vag delivery P: d/c once baby is released with instructions RTO 4 weeks PP care Condition at discharge: Good Disposition: DC-01 TO HOME OR SELFCARE - Discharge Diagnoses (1) Spontaneous vaginal delivery Status: Acute Comment: RTO 4 weeks PP Care Plan - Provider Discharge Summary Activity: routine, no sex for 6 weeks, no heavy lifting 4 weeks, no strenuous exercise Diet: routine Instructions: routine Additional instructions: [] Smoking cessation referral if applicable(refer to patient education folder for contact #) [] Refer to [employer] Booklet Call your doctor immediately for: * Fever > 100.5 * Heavy vaginal bleeding ( >1 pad per hour) * Severe persistent headache * Shortness of breath * Reddened, hot, painful area to leg or breast * Drainage or odor from incision. * Keep incision clean and dry at all times and follow doctor's instructions reg arding bathing/showering - Follow up plan Follow up: KATHLEEN WAITE MD [Primary Care Provider] - 03/19/21 (Congratulations! please call [phone] to schedule your visit in 4 weeks. Take Motrin/ibuprofen for cramping/pain. Call with any concerns.)
[2021-02-16 09:12] LABS: Hematocrit 29.8 % (30.3-42.9); Hemoglobin 9.9 gm/dl (10.1-14.3)
[2021-02-16] MEDS ORDERED: PRENATAL VIT27-FE FUMARATE-FOLIC ACID VIT TAB PO SCH (10:00)
[2021-02-16] MEDS: DOCUSATE SODIUM 100 MG CAP PO SCH (10:23)
--- NOTE | 2021-02-16 15:04 | Post Anesthesia Evaluation ---
- Post Anesthesia Evaluation Patient Participated: Yes Airway Patent: Yes Stable Respiratory Function: Yes Nausea/Vomiting: No Temp > 96.8F: Yes Pain Manageable: Yes Adequeate Hydration: Yes Anesthesia Complications: No Block Receding Appropriately: Yes
[2021-02-16] MEDS ORDERED: IBUPROFEN 200 MG TAB PO ONE (18:12)
[2021-02-16] MEDS ORDERED: ACETAMINOPHEN 500 MG TAB PO ONE (18:13)
[2021-02-16 21:33] VITALS: BP 105/59
== END 2021-02-16 23:10 | disposition home or self-care (01) | DRG 775 ==
LOC: TRG 12:27 → LD 12:28 → TRG 14:15 → OB 02-15 23:22
PROVIDERS: ADMIT Obstetrics & Gynecology; ATTEND Obstetrics & Gynecology
PROC: 3E0P7VZ Introduction of Hormone into Female Reproductive, Via Natural or Artificial Opening (ICD-10-PCS; principal; 2021-02-15)
PROC: 10E0XZZ Delivery of Products of Conception, External Approach (ICD-10-PCS; 2021-02-15)
PROC: 3E0R3BZ Introduction of Anesthetic Agent into Spinal Canal, Percutaneous Approach (ICD-10-PCS; 2021-02-15)
PROC: 00HU33Z Insertion of Infusion Device into Spinal Canal, Percutaneous Approach (ICD-10-PCS; 2021-02-15)
DX: O48.0 Post-term pregnancy (principal); Z3A.41 41 weeks gestation of pregnancy; Z37.0 Single live birth; O99.824 Streptococcus B carrier state complicating childbirth; O36.8330 Maternal care for abnormalities of the fetal heart rate or rhythm, third trimester, not applicable or unspecified; Z20.822 Contact with and (suspected) exposure to COVID-19
CPT/HCPCS: 36415; 59025; 59200; 85014; 85018; 85027; 86592; 86850; 86900; 86901; 88307; 96360; G0378; J0290; J2590; J3010; J7120; U0003